=== PATIENT | female | born 1965 | race American Indian/Alaskan Native ===

== ENCOUNTER 2018-05-12 11:46 | Emergency (ER) | payer MEDICAID ==
--- NOTE | 2018-05-12 12:06 | EDM.PDOC ---
ED HPI GENERAL MEDICAL PROBLEM - General Chief Complaint: ENT Problem Stated Complaint: SORE THROAT Time Seen by Provider: 05/12/18 12:06 Source of Information: Reports: Patient, RN, RN Notes Reviewed - History of Present Illness INITIAL COMMENTS - FREE TEXT/NARRATIVE: Bailey Freed is a 53 -year-old female who presents to our ED with complaints of ongoing cold for 3 weeks which is getting worse. She reports hoarseness, sore throat, thick yellow-green mucus and bloody nasal mucous, cough , and burning in the chest which is worse with cough. She denies any shortness of breath or other chest pain. She has been taking Motrin and ibuprofen, emergen-C , and Lupe-[place]. She's not had a flu shot. She reports occasional popping from her ears but no ear pain. She reports okay oral intake and has been drinking plenty of fluids. She denies any dizziness. She has a history of spinal stenosis and hypertension. She is allergic to penicillin. She does not report specific PCP however she does state that she sees were present available at [facility]. Denies any sick contacts however she is concerned as he daughter is and she has young children around. Throat Pain Score (Numeric/FACES): 5 - Related Data Allergies Allergy/AdvReac Type Severity Reaction Status Date / Time Penicillins Allergy Hives Verified 05/12/18 11:54 Home Meds: Home Meds Benzonatate [Tessalon Perle] 200 mg PO Q8H PRN #15 capsule 05/12/18 [Rx] Carisoprodol [Soma] 0 mg PO TID 05/12/18 [History] [place] Aspartate [Lithate] 0 mg PO DAILY 05/12/18 [History] Past Medical History Cardiovascular History: Reports: Hypertension Musculoskeletal History: Reports: Back Pain, Chronic, Other (See Below) Other Musculoskeletal History: spinal stenosis Psychiatric History: Reports: Anxiety, Bipolar, PTSD Social & Family History - Tobacco Use Smoking Status *Q: Current Every Day Smoker Years of Tobacco use: 20 Packs/Tins Daily: 0.4 - Caffeine Use Caffeine Use: Reports: Coffee, Energy Drinks, Soda, Tea - Recreational Drug Use Recreational Drug Use: No ED ROS ENT - Review of Systems Review Of Systems: See Below Constitutional: Reports: No Symptoms, Malaise, Decreased Appetite (reports she has been "finicky" ). Denies: Fever, Chills, Weakness, Fatigue HEENT: Reports: Rhinitis, Throat Pain. Denies: Dental Pain, Ear Discharge, Ear Pain, Eye Discharge, Eye Pain, Hearing Loss, Nosebleed, Nose Pain, Sinus Problem , Throat Swelling, Vision Change Respiratory: Reports: Wheezing, Cough, Sputum. Denies: Shortness of Breath, Pleuritic Chest Pain, Hemoptysis Cardiovascular: Reports: No Symptoms. Denies: Chest Pain, Dyspnea on Exertion, Lightheadedness, Orthopnea, Palpitations, Syncope Endocrine: Reports: No Symptoms GI/Abdominal: Reports: Nausea. Denies: Abdominal Pain, Bloody Stool, Constipation, Diarrhea, Distension, Hematemesis, Hematochezia, Melena, Vomiting : Reports: No Symptoms Musculoskeletal: Reports: No Symptoms Skin: Reports: No Symptoms ED EXAM, ENT - Physical Exam Exam: See Below Exam Limited By: No Limitations General Appearance: Alert, WD/WN, No Apparent Distress Eye Exam: Bilateral Eye: EOMI, Normal Inspection, PERRL Ears: Normal External Exam, Hearing Grossly Normal, Normal TMs, Canal Blood ( very small area of what appears to be old dried blood on anterior aspect of right canal ) Nose: Normal Inspection, Normal Mucousa, No Blood Mouth/Throat: Normal Inspection, Normal Gums, Normal Lips, Normal Oropharynx, Normal Teeth Head: Atraumatic, Normocephalic Neck: Normal Inspection, Supple, Non-Tender, Full Range of Motion Respiratory/Chest: No Respiratory Distress, Lungs Clear, Normal Breath Sounds, No Accessory Muscle Use, Chest Non-Tender Cardiovascular: Normal Peripheral Pulses, Regular Rate, Rhythm, No Edema, No Gallop, No JVD, No Murmur, No Rub GI/Abdominal: Normal Bowel Sounds, Soft, Non-Tender, No Organomegaly, No Distention, No Abnormal Bruit, No Mass Lymphatic: No Adenopathy Course - Vital Signs Last Recorded V/S: Last Vital Signs Temp 97.0 F 05/12/18 11:59 Pulse 88 05/12/18 11:59 Resp 20 05/12/18 11:59 BP 105/77 05/12/18 11:59 Pulse Ox 96 05/12/18 11:59 - Orders/Labs/Meds Orders: Active Orders 24 hr Category Date Time Status CXR [Chest 2V] [CR] Routine Exams 05/12/18 12:24 Taken CULTURE STREP A CONFIRMATION [RM] Stat Lab 05/12/18 12:55 Results STREP SCRN A RAPID W CULT CONF [] Stat Lab 05/12/18 12:55 Results Labs: Laboratory Tests 05/12/18 05/12/18 Range/Units 12:29 12:29 WBC 11.71 H (3.98-10.04) K/mm3 RBC 4.86 (3.98-5.22) M/mm3 Hgb 14.2 (11.2-15.7) gm/L Hct 45.0 H (34.1-44.9) % MCV 92.6 (79.4-94.8) fl MCH 29.2 (25.6-32.2) pg MCHC 31.6 L (32.2-35.5) g/dl RDW Std Deviation 43.9 (36.4-46.3) fL Plt Count 341 (182-369) K/mm3 MPV 8.8 L (9.4-12.3) fl Neut % (Auto) 58.2 (34.0-71.1) % Lymph % (Auto) 29.3 (19.3-51.7) % [place] % (Auto) 8.6 (4.7-12.5) % Eos % (Auto) 3.1 (0.7-5.8) Baso % (Auto) 0.6 (0.1-1.2) % Neut # (Auto) 6.82 H (1.56-6.13) K/mm3 Lymph # (Auto) 3.43 (1.18-3.74) K/mm3 [place] # (Auto) 1.01 H (0.24-0.36) K/mm3 Eos # (Auto) 0.36 (0.04-0.36) K/mm3 Baso # (Auto) 0.07 (0.01-0.08) K/mm3 Sodium 137 (136-145) mEq/L Potassium 4.0 (3.5-5.1) mEq/L Chloride 102 (98-107) mEq/L Carbon Dioxide 27 (21-32) mEq/L Anion Gap 12.0 (5-15) BUN 23 H (7-18) mg/dL Creatinine 1.1 H (0.55-1.02) mg/dL Est Cr Clr Drug Dosing 53.83 mL/min Estimated GFR (MDRD) 52 (>60) mL/min BUN/Creatinine Ratio 20.9 H (14-18) Glucose 111 H (74-106) mg/dL Calcium 9.3 (8.5-10.1) mg/dL Mycoplasma pneumon IgM Negative (NEGATIVE) - Re-Assessments/Exams Free Text/Narrative Re-Assessment/Exam: Initial labs will include CBC, CMP, mycoplasma pneumonia, influenza, rapid strep screen. We'll also order 2 view chest x-ray as she is reported wheezing and productive cough. 05/12/18 12:27 Chest x-ray reviewed by myself and Dr. Maxwell. Nothing acute is noted however patient does have what appears to be a nodule in the right lung base. Because the patient is a smoker we will recommend follow-up with primary care for provider regarding this. She may benefit from a CT scan in the future. Influenza and rapid strep both returned negative. Strep culture will be pending. CBC is slightly elevated at 11.71. Neutrophils are normal at 58.2. Creatinine is slightly elevated at 1.1. BUN is 23. EGFR is 52. Glucose is 111. Mycoplasma pneumonia is negative. 05/12/18 13:34 Departure - Departure Time of Disposition: 14:15 Disposition: Home, Self-Care 01 Condition: Good Clinical Impression: Viral upper respiratory illness - Discharge Information *PRESCRIPTION DRUG MONITORING PROGRAM REVIEWED*: No *COPY OF PRESCRIPTION DRUG MONITORING REPORT IN PATIENT TILA: No Prescriptions: Benzonatate [Tessalon Perle] 200 mg PO Q8H PRN #15 capsule PRN Reason: Cough Instructions: Viral Illness, Adult Referrals: PCP,None [Primary Care Provider] - Forms: ED Department Discharge Additional Instructions: You were seen in the ED today due to cough and sore throat. Your labs looked good and your influenza and strep throat screen were negative. Your chest X-ray showed no pneumonia. This is good news. We did note a small abnormality in the right lower lobe of your lung. This is often just a spot where 2 vessels cross however it could be something more. Recommend re-check this in 6 months with your primary care provider. You should stop smoking. You likely have a viral illness. An antibiotic will not help with this. Recommend rest and keeping hydrated. Drink water, power-aid, and Gatorade. Recommend [id number] Robitussin for cough. Will also sent a prescription for cough medication to [facility]. Take these as prescribed and do not chew them. Should symptoms worsen see a primary care provider, walk-in clinic, or if necessary return to the ED. - My Orders Last 24 Hours: My Active Orders 05/12/18 12:24 CXR [Chest 2V] [CR] Routine 05/12/18 12:55 CULTURE STREP A CONFIRMATION [RM] Stat STREP SCRN A RAPID W CULT CONF [RM] Stat - Assessment/Plan Last 24 Hours: My Active Orders 05/12/18 12:24 CXR [Chest 2V] [CR] Routine 05/12/18 12:55 CULTURE STREP A CONFIRMATION [RM] Stat STREP SCRN A RAPID W CULT CONF [RM] Stat
--- NOTE | 2018-05-13 07:58 | CR ---
Chest: Two views of the chest were obtained. Comparison: No previous chest x-ray. Heart size and mediastinum are normal. Lungs are clear. Scattered degenerative change is seen throughout the spine. Impression: 1. Nothing acute is seen on two-view chest x-ray. Diagnostic code #2
== END 2018-05-12 14:34 | disposition home or self-care (01) ==
LOC: JD.ED 11:46
DX: J06.9 Acute upper respiratory infection, unspecified (principal); I10 Essential (primary) hypertension; F17.210 Nicotine dependence, cigarettes, uncomplicated; Z88.0 Allergy status to penicillin; Z79.899 Other long term (current) drug therapy
CPT/HCPCS: 36415; 71046; 71046-26; 80048; 85025; 86738; 87081; 87430; 87804; 99282; 99283

== ENCOUNTER 2018-06-18 16:54 | Emergency (ER) | payer MEDICAID ==
[2018-06-18] MEDS ORDERED: Clindamycin HCl 150 MG Cap PO ONE ×2 (17:27→17:28)
[2018-06-18] MEDS ORDERED: Ketorolac 30 MG/ML SDV IM ONE (17:28)
--- NOTE | 2018-06-18 17:38 | EDM.PDOC ---
ED HPI GENERAL MEDICAL PROBLEM - General Chief Complaint: ENT Problem Stated Complaint: POSS INFECTION IN MOUTH Time Seen by Provider: 06/18/18 17:12 Source of Information: Reports: Patient, RN Notes Reviewed History Limitations: Reports: No Limitations - History of Present Illness INITIAL COMMENTS - FREE TEXT/NARRATIVE: Patient is a 53-year-old female who presents to the ED today for the evaluation of a possible dental abscess. The patient states that she had some pain in the upper right portion of her jaw yesterday, and this morning she noticed a bubble that had formed over the spot where she had pain. She also noticed some foul tasting/smelling discharge. She states that she normally takes ibuprofen 800 mg daily for other issues, and this is not cutting the pain at this time. She notes that she does have poor teeth and there are multiple fillings that are crumbling out of her mouth. She denies any fever/chills but does have some mild swelling noted to the right side of her face. She is not having any difficulty swallowing at this time nor is she having headache. She would rate her pain at a 6 out of 10 today. Right Upper Tooth/Teeth Pain Score (Numeric/FACES): 6 - Related Data Allergies Allergy/AdvReac Type Severity Reaction Status Date / Time Penicillins Allergy Hives Verified 06/18/18 17:12 Home Meds: Home Meds Benzonatate [Tessalon Perle] 200 mg PO Q8H PRN #15 capsule 05/12/18 [Rx] Carisoprodol [Soma] 0 mg PO TID 05/12/18 [History] [place] Aspartate [Lithate] 0 mg PO DAILY 05/12/18 [History] Clindamycin HCl 300 mg PO QID #40 capsule 06/18/18 [Rx] Past Medical History Cardiovascular History: Reports: Hypertension Musculoskeletal History: Reports: Back Pain, Chronic, Other (See Below) Other Musculoskeletal History: spinal stenosis Psychiatric History: Reports: Anxiety, Bipolar, PTSD Social & Family History - Tobacco Use Smoking Status *Q: Never Smoker - Caffeine Use Caffeine Use: Reports: None - Recreational Drug Use Recreational Drug Use: No ED ROS ENT - Review of Systems Review Of Systems: See Below Constitutional: Reports: No Symptoms HEENT: Reports: Dental Pain Respiratory: Reports: No Symptoms Cardiovascular: Reports: No Symptoms Endocrine: Reports: No Symptoms GI/Abdominal: Reports: No Symptoms : Reports: No Symptoms Musculoskeletal: Reports: No Symptoms Skin: Reports: No Symptoms Neurological: Reports: No Symptoms Psychiatric: Reports: No Symptoms Hematologic/Lymphatic: Reports: No Symptoms Immunologic: Reports: No Symptoms ED EXAM, ENT - Physical Exam Exam: See Below Exam Limited By: No Limitations General Appearance: Alert, WD/WN, No Apparent Distress Eye Exam: Bilateral Eye: Normal Inspection Ears: Normal External Exam Nose: Normal Inspection Mouth/Throat: Normal Inspection, Normal Lips, Normal Oropharynx, Dental Tenderness (Upper right jaw near incisors, most dentition in poor repair.). No : Pharyngeal Erythema Head: Atraumatic, Normocephalic, Facial Swelling (Noted to the right cheek), Facial Tenderness (Noted to the right cheek over the maxillary sinus), Sinus Tenderness (Right maxillary sinus) Neck: Normal Inspection, Supple, Non-Tender, Full Range of Motion. No: Lymphadenopathy (L), Lymphadenopathy (R) Respiratory/Chest: No Respiratory Distress, Lungs Clear, Normal Breath Sounds, No Accessory Muscle Use, Chest Non-Tender Cardiovascular: Normal Peripheral Pulses, Regular Rate, Rhythm, No Murmur Extremities: Normal Inspection, Normal Capillary Refill Neurological: Alert, Oriented, Normal Cognition, No Motor/Sensory Deficits Psychiatric: Normal Affect, Normal Mood Skin: Warm, Dry, Intact, Normal Color, No Rash Course - Vital Signs Last Recorded V/S: Last Vital Signs Temp 97.9 F 06/18/18 17:10 Pulse 78 06/18/18 17:10 Resp 16 06/18/18 17:10 BP 162/93 H 06/18/18 17:10 Pulse Ox 97 06/18/18 17:10 - Orders/Labs/Meds Meds: Medications Discontinued Medications Generic Name Dose Route Start Last Admin Trade Name Lionq PRN Reason Stop Dose Admin Clindamycin HCl 450 mg 06/18/18 17:27 Cleocin PO 06/18/18 17:28 ONETIME ONE Clindamycin HCl 150 mg 06/18/18 17:28 Cleocin PO 06/18/18 17:29 ONETIME ONE Ketorolac Tromethamine 30 mg 06/18/18 17:28 Toradol IM 06/18/18 17:29 ONETIME ONE - Re-Assessments/Exams Free Text/Narrative Re-Assessment/Exam: 06/18/18 17:37 Patient presents to the ED for the evaluation of dental pain. I have ordered 30 mg IM Toradol and a 600 mg Cleocin loading dose in the ED and have provided the patient with a prescription for 300 mg 4 times a day for 10 days. Departure - Departure Time of Disposition: 17:38 Disposition: Home, Self-Care 01 Condition: Fair Clinical Impression: Dental abscess - Discharge Information *PRESCRIPTION DRUG MONITORING PROGRAM REVIEWED*: No *COPY OF PRESCRIPTION DRUG MONITORING REPORT IN PATIENT TILA: No Prescriptions: Clindamycin HCl 300 mg PO QID #40 capsule Instructions: Dental Abscess, [id number] Referrals: Phillip Davila MD [Primary Care Provider] - Additional Instructions: You have been evaluated in the ED for your dental pain. You have been provided with a script for Clindamycin. This was electronically sent to [facility] pharmacy located near [facility]. Please take this medication as directed. (1 tab 4 times daily for 10 days or until gone). Aleve provides good pain relief for dental pain. Please take 1-2 tabs twice daily as needed for pain. You may use hot pack/ ice packs to the affected area as tolerated in 15-20 minute intervals. You will ultimately need to find a dentist to provide definitive management of your dental pain. A list of dentists have been provided to you, you will need to find dental care through one of these providers. Please return to the ED if your symptoms change or worsen.
== END 2018-06-18 17:53 | disposition home or self-care (01) ==
LOC: JD.ED 16:54
DX: K04.7 Periapical abscess without sinus (principal); I10 Essential (primary) hypertension; Z79.899 Other long term (current) drug therapy; Z88.0 Allergy status to penicillin
CPT/HCPCS: 96372; 99282; A9270; J1885; 99283

== ENCOUNTER 2019-12-22 11:14 | Day surgery (SDC) | payer MEDICAID ==
[~2019-12-22 11:14] MED LIST: Lactated Ringers 1,000 ML IV SCH; Lidocaine 1%/Sod Bicarbonate in NS 8.4% 1 ML Syringe IDERM PRN; Sodium Chloride 0.9% 10 ML Syringe FLUSH PRN; TRIAMCINOLONE ACETONIDE 40 MG/ML ONE
[2019-12-22] MEDS ORDERED: Triamcinolone Acetonide 40 MG/ML 1 ML SDV ONE (11:57)
[2019-12-22] MEDS ORDERED: Lidocaine 1% 50 ML MDV ONE (11:58)
[2019-12-22] MEDS ORDERED: Bupivacaine 0.25% 10 ML SDV ONE (11:58)
--- NOTE | 2019-12-22 12:19 | PCM.PREANE ---
Preanesthetic Assessment - Procedure Proposed Procedure: right carpal tunnel release with left carpal tunnel injection, right thumbe index x 1 - Anesthesia/Transfusion/Family Hx Anesthesia History: Prior Anesthesia Without Reaction Family History of Anesthesia Reaction: No Transfusion History: No Prior Transfusion(s) Intubation History: Unknown - Review of Systems General: No Symptoms Pulmonary: No Symptoms Cardiovascular: No Symptoms Gastrointestinal: No Symptoms Neurological: No Symptoms Other: Reports: Depression, Anxiety - Physical Assessment NPO Status Date: 12/21/19 NPO Status Time: 10:30 Height: 1.65 m Weight: 106.9 kg ASA Class: 3 Mental Status: Alert & Oriented x3 Airway Class: Mallampati = 1 Dentition: Reports: Normal Dentition Thyro-Mental Finger Breadths: 3 Mouth Opening Finger Breadths: 5 ROM/Head Extension: Limited/Partial Lungs: Clear to Auscultation, Normal Respiratory Effort Cardiovascular: Regular Rate, Regular Rhythm - Lab Values: Laboratory Last Values SARS-CoV-2 (PCR) Not detected (NOT DETECT) 12/18/19 12:30 MRSA (PCR) Negative 12/10/19 14:38 - Allergies Allergies/Adverse Reactions: Allergies Allergy/AdvReac Type Severity Reaction Status Date / Time Penicillins Allergy Hives Verified 06/18/18 17:12 - Blood Blood Available: No - Acknowledgements Anesthesia Type Planned: MAC Pt an Appropriate Candidate for the Planned Anesthesia: Yes Alternatives and Risks of Anesthesia Discussed w Pt/Guardian: Yes Pt/Guardian Understands and Agrees with Anesthesia Plan: Yes PreAnesthesia Questionnaire Cardiovascular History: Reports: Hypertension Musculoskeletal History: Reports: Back Pain, Chronic, Other (See Below) Other Musculoskeletal History: spinal stenosis Psychiatric History: Reports: Anxiety, Bipolar, PTSD - HOME MEDS Home Medications: Home Meds Benzonatate [Tessalon Perle] 200 mg PO Q8H PRN #15 capsule 05/12/18 [Rx] [place] Aspartate [Lithate] 0 mg PO DAILY 05/12/18 [History] carisoprodoL [Soma] 0 mg PO TID 05/12/18 [History] Clindamycin HCl 300 mg PO QID #40 capsule 06/18/18 [Rx] Acetaminophen/HYDROcodone [[place] 325-5 MG] 1 - 2 tab PO Q6H PRN #10 tablet 12/18/19 [Rx] - CURRENT (IN HOUSE) MEDS Current Meds: Current Medications Discontinued Medications Bupivacaine HCl (Sensorcaine-Mpf 0.25%) Confirm Administered Dose 20 ml .ROUTE .STK-MED ONE Stop: 12/22/19 11:59 Lactated Ringer's (Ringers, Lactated) 1,000 mls @ 125 mls/hr IV ASDIRECTED ALEX Stop: 11/06/19 23:00 Lactated Ringer's (Ringers, Lactated) 1,000 mls @ 125 mls/hr IV ASDIRECTED [facility] Stop: 12/18/19 23:00 Lidocaine HCl (Xylocaine 1%) Confirm Administered Dose 50 ml .ROUTE .STK-MED ONE Stop: 12/22/19 11:59 Lidocaine/Sodium Bicarbonate (Buffered Lidocaine 1% In Ns 8.4%) 0.25 ml IDERM ONETIME PRN PRN Reason: Prior to IV Start Stop: 11/06/19 18:00 Lidocaine/Sodium Bicarbonate (Buffered Lidocaine 1% In Ns 8.4%) 0.25 ml IDERM ONETIME PRN PRN Reason: Prior to IV Start Stop: 12/18/19 18:00 Sodium Chloride (Saline Flush) 10 ml FLUSH ASDIRECTED PRN PRN Reason: Keep Vein Open Stop: 11/06/19 18:00 Sodium Chloride (Saline Flush) 10 ml FLUSH ASDIRECTED PRN PRN Reason: Keep Vein Open Stop: 12/18/19 18:00 Triamcinolone Acetonide (Kenalog-40) Confirm Administered Dose 80 mg .ROUTE .STK-MED ONE Stop: 12/22/19 11:58
[2019-12-22] MEDS ORDERED: Propofol 200 MG/20 ML SDV ONE ×2 (12:26→12:29)
[2019-12-22] MEDS ORDERED: Midazolam 1 MG/ML 2 ML SDV ONE (12:26)
[2019-12-22] MEDS ORDERED: fentaNYL 100 MCG/2 ML SDV ONE (12:26)
[2019-12-22] MEDS ORDERED: Lidocaine 1% 4 ML ONE (12:28)
[2019-12-22] MEDS ORDERED: ceFAZolin 1 GM Vial ONE (13:11)
[2019-12-22] MEDS: Bupivacaine 0.25% 10 ML SDV ONE ×3 (13:31→13:41)
[2019-12-22] MEDS: Triamcinolone Acetonide 40 MG/ML 1 ML SDV ONE ×2 (13:40→13:41)
--- NOTE | 2019-12-22 14:00 | PCM48HPAN ---
Post Anesthesia Note - EVALUATION WITHIN 48HRS OF ANESTHETIC Vital Signs in Normal Range: Yes Patient Participated in Evaluation: Yes Respiratory Function Stable: Yes Airway Patent: Yes Cardiovascular Function Stable: Yes Hydration Status Stable: Yes Pain Control Satisfactory: Yes Nausea and Vomiting Control Satisfactory: Yes Mental Status Recovered: Yes
[2019-12-22] MEDS ORDERED: fentaNYL 100 MCG/2 ML SDV IVPUSH PRN (14:02)
[2019-12-22] MEDS ORDERED: Ondansetron 4 MG/2 ML SDV IVPUSH PRN (14:02)
[2019-12-22] MEDS ORDERED: TRIAMCINOLONE ACETONIDE 40 MG/ML ONE (14:12)
[2019-12-22] MEDS ORDERED: Sodium Chloride 0.9% 10 ML Syringe FLUSH PRN (14:34)
--- NOTE | 2019-12-22 17:24 | PCM.OPNOTE ---
- General Post-Op/Procedure Note Date of Surgery/Procedure: 12/22/19 Operative Procedure(s): right carpal tunnel release with left carpal tunnel injection and right thumb, index and middle finger trigger finger injections Pre Op Diagnosis: bilateral median nerve compression neuropathy and right thumb, index, and middle finger stenosingn tenosynovitis Post-Op Diagnosis: Same Anesthesia Technique: Local, MAC Primary Surgeon: Dre Cruz Anesthesia Provider: Elizabeth Cage Material Yard Clerk: Brittany MontanoL in mLs: 5 Complications: None Condition: Good Free Text/Narrative:: Intake & Output 12/22/19 12/22/19 12/22/19 06:59 14:59 22:59 Intake Total 560 Balance 560
--- NOTE | 2019-12-29 09:20 | OR ---
DATE OF OPERATION: 12/22/2019 SURGEON: Dre Cruz MD OPERATION PERFORMED: Right carpal tunnel release with left carpal tunnel injection and right thumb index and middle finger trigger finger injections. PREOPERATIVE DIAGNOSIS: Bilateral median nerve compression neuropathy and right thumb index and middle finger stenosing tenosynovitis. POSTOPERATIVE DIAGNOSIS: Bilateral median nerve compression neuropathy and right thumb index and middle finger stenosing tenosynovitis. ANESTHESIA: Local MAC. ANESTHESIA PROVIDER: Elizabeth Cage. PARTY HOST/HOSTESS: Brittany Montano PA-C. ESTIMATED BLOOD LOSS: Less than 5 mL. COMPLICATIONS: None. CONDITION: Stable. DESCRIPTION OF PROCEDURE: The patient was identified in the preop holding area. Proper site was marked and identified by the surgeon. The patient was taken back to the operating theater where after adequate anesthesia, the patient's right upper extremity was sterilely prepped and draped in the usual sterile fashion. OR time-out was performed. The patient did not receive antibiotics and it is not indicated for soft tissue hand procedure. At this time, the right upper extremity was exsanguinated and an [place] was used as a tourniquet on the forearm. At this time, using 1% lidocaine without epinephrine and 0.25% Marcaine without epinephrine, the palmar cutaneous branch of the median nerve was anesthetized and then the incisional site was anesthetized using Hernandez cardinal line and ulnar border of the fourth digit as reference. Once this had set up, an incision was made. Blunt dissection was taken down to the palmar cutaneous fascia. Palmar cutaneous fascia was incised with a [place] blade. At this time, the transverse carpal ligament was identified. A small rent was made in the transverse carpal ligament with a [place] blade under direct visualization. Resection of the transverse carpal ligament was done distally using tenotomy scissors making sure to stop short of the palmar arch. At this time, attention was turned proximally after it was found to be adequately released. Using the tenotomy scissors keeping the tips ulnar to protect the palmar cutaneous branch of the median nerve, the superficial forearm fascia as well as the transverse carpal ligament were resected proximally. It was found to be adequate release both proximally and distally. At this time, adequate saline was irrigated through the wound. 4-0 nylon sutures were used closure of the skin. The patient was placed in a sterile soft dressing and sent to PACU in stable condition. After this was completed under sterile technique, 1 mL of 40 mg Kenalog and 1 mL of 0.25% Marcaine were injected to the right thumb, index, and middle finger A1 adonis region. The patient then had a sterile soft dressing applied to that side. After this was completed under sterile technique, 1 mL of 40 mg Kenalog and 2 mL of 0.25% Marcaine were injected to the left carpal tunnel. The patient tolerated all procedures well. CAMMY /[id number]
== END 2019-12-22 15:10 | disposition home or self-care (01) ==
LOC: JD.SDS 11:14
PROVIDERS: ATTEND Orthopaedic Surgery
DX: G56.13 Other lesions of median nerve, bilateral upper limbs (principal); M65.841 Other synovitis and tenosynovitis, right hand; I10 Essential (primary) hypertension; L73.2 Hidradenitis suppurativa; M48.02 Spinal stenosis, cervical region; F41.8 Other specified anxiety disorders; F17.211 Nicotine dependence, cigarettes, in remission; G56.03 Carpal tunnel syndrome, bilateral upper limbs; K21.9 Gastro-esophageal reflux disease without esophagitis; Z01.812 Encounter for preprocedural laboratory examination; Z20.828 Contact with and (suspected) exposure to other viral communicable diseases; Z79.899 Other long term (current) drug therapy; Z88.0 Allergy status to penicillin; Z98.1 Arthrodesis status
CPT/HCPCS: 20526; 20553; 64721; 87635; 87641; J0690; J2001; J2250; J2704; J3010; J3300; J3301; J3490; 01810; U0002

== ENCOUNTER 2020-01-06 12:44 | Emergency (ER) | payer MEDICAID ==
--- NOTE | 2020-01-06 14:01 | EDM.PDOC ---
ED HPI GENERAL MEDICAL PROBLEM - General Chief Complaint: Drug or Alcohol Abuse Stated Complaint: [facility] Time Seen by Provider: 01/06/20 13:15 - History of Present Illness INITIAL COMMENTS - FREE TEXT/NARRATIVE: 54-year-old female presents the emergency room after having some sort of an event at home. She was brought in by EMS. Apparently the patient was found down with her lips turning blue. She was found in the bathroom her time down was unknown. The patient is having a hard time concentrating and organizing her speech however she gives a history of last being normal around 730 or 8:00 this morning. The patient remembers going to the bathroom but does not remember anything after that. The patient has not had episodes like this in the past. The patient's daughter stated that she is concerned that perhaps her mom is taking some street drugs or took too many of her postoperative medications. Patient recently had carpal tunnel surgery bilaterally here in town apparently she ran out of those medications and took some medication she had left over from an ovary surgery she had done in [place] a couple of months ago. Apparently the patient's been having some problem with some vaginal spotting intermittently and today this was heavier than he has been experiencing in the recent past. According to the daughter the her mom was last known normal around 7 AM this morning. She was out taking care of business and when she came back found her mom in the state. The patient had a carpal tunnel surgery at the end of last month she received 10 [place] at that time and has not had any refills. 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 - Related Data Allergies Allergy/AdvReac Type Severity Reaction Status Date / Time Penicillins Allergy Hives Verified 01/06/20 12:56 Home Meds: Home Meds Losartan [Cozaar] 100 mg PO DAILY 01/06/20 [History] Losartan/Hydrochlorothiazide [Losartan-HCTZ 100-25 MG] 1 tab PO DAILY 01/06/20 [History] Pantoprazole Sodium [Protonix] 40 mg PO DAILY 01/06/20 [History] Topiramate 50 mg PO DAILY 01/06/20 [History] Venlafaxine [Effexor XR] 150 mg PO DAILY 01/06/20 [History] hydrOXYzine pamoate [Hydroxyzine Pamoate] 100 mg PO BEDTIME 01/06/20 [History] Past Medical History Cardiovascular History: Reports: Hypertension Gastrointestinal History: Reports: GERD RIGGING UP MAN History: Reports: Musculoskeletal History: Reports: Back Pain, Chronic, Other (See Below) Other Musculoskeletal History: spinal stenosis Psychiatric History: Reports: Anxiety, Bipolar, PTSD Endocrine/Metabolic History: Reports: Obesity/BMI 30+ - Past Surgical History Female Surgical History: Reports: Oophorectomy, Salpingo-Oophorectomy Musculoskeletal Surgical History: Reports: Carpal Tunnel Social & Family History - Family History Family Medical History: Noncontributory - Tobacco Use Tobacco Use Status *Q: Current Every Day Tobacco User Years of Tobacco use: 35 Packs/Tins Daily: 1 - Caffeine Use Caffeine Use: Reports: Coffee, Soda - Recreational Drug Use Recreational Drug Use: Yes Recreational Drug Type: Reports: Other (see below) Other Recreational Drug Type: "crack for 20 years stopped 8-9 years ago". pt states she takes more than prescribed sometimes Recreational Drug Use Frequency: Daily ED ROS GENERAL - Review of Systems Review Of Systems: See Below Constitutional: Denies: Fever, Chills HEENT: Reports: No Symptoms Respiratory: Reports: No Symptoms. Denies: Hemoptysis Cardiovascular: Reports: Syncope (Syncope is possible). Denies: Dyspnea on Exertion, Palpitations GI/Abdominal: Reports: No Symptoms : Reports: Other (Vaginal spotting no burning or frequency however) Musculoskeletal: Reports: Other (She has chronic left leg weakness secondary to spinal stenosis) Skin: Reports: No Symptoms Neurological: Reports: Weakness Psychiatric: Reports: No Symptoms ED EXAM, GENERAL - Physical Exam Exam: See Below Exam Limited By: No Limitations General Appearance: Alert, No Apparent Distress, Obese, Other (Planes of evident dry mouth. With observation the patient is having a hard time formulating her speech but no other apparent weaknesses.) Eye Exam: Bilateral Eye: EOMI, Normal Inspection Ears: Normal External Exam, Normal Canal, Hearing Grossly Normal, Normal TMs Throat/Mouth: Normal Inspection, Normal Lips, Normal Gums, Normal Oropharynx, Normal Voice, No Airway Compromise, Other (Dentures on the upper) Head: Atraumatic, Normocephalic. No: Facial Swelling, Facial Tenderness, Sinus Tenderness Neck: Normal Inspection, Supple. No: Lymphadenopathy (L), Lymphadenopathy (R) Respiratory/Chest: No Respiratory Distress, Lungs Clear, Normal Breath Sounds Cardiovascular: No Edema, No Murmur, Tachycardia (Around 110 during my exam). No: Irregularly Irregular GI/Abdominal: Normal Bowel Sounds, Soft, Non-Tender, Other (Obese) Extremities: Other (She has and noticeable weakness in her left lower leg this apparently is chronic. Upper extremity exam is entirely within normal limits) Neurological: Other (She has difficulty formulating her speech remaining exam is otherwise unremarkable at this time) Skin Exam: Stud(s) Course - Vital Signs Last Recorded V/S: Last Vital Signs Temp 35.6 C L 01/06/20 12:48 Pulse 124 H 01/06/20 12:48 Resp 12 01/06/20 12:48 BP 157/104 H 01/06/20 12:48 Pulse Ox 98 01/06/20 12:48 - Orders/Labs/Meds Orders: Active Orders 24 hr Category Date Time Status EKG Documentation Completion [RC] STAT Care 01/06/20 13:56 Active Chest 1V Frontal [CR] Stat Exams 01/06/20 13:57 Taken Head wo Cont [CT] Stat Exams 01/06/20 13:59 Taken CORONAVIRUS COVID-19 FERCHO [MOLEC] Stat Lab 01/06/20 19:45 Received CULTURE BLOOD [BC] Stat Lab 01/06/20 19:05 Received CULTURE BLOOD [BC] Stat Lab 01/06/20 19:19 Received MYOGLOBIN [REF] Stat Lab 01/06/20 14:36 Received MYOGLOBIN, URINE Stat Lab 01/06/20 16:15 Received Heparin Sodium/D5W [Heparin 25,000 Units in D5W 500 ML] Med 01/06/20 19:00 Active 25,000 units in 500 ml IV TITRATE Lactated Ringers [Ringers, Lactated] 1,000 ml Med 01/06/20 14:15 Active IV ASDIRECTED Blood Culture x2 Reflex Set [OM.PC] Stat Oth 01/06/20 18:44 Ordered Medication Orders Lactated Ringer's (Ringers, Lactated) 1,000 mls @ 125 mls/hr IV ASDIRECTED ALEX Last Admin: 01/06/20 15:15 Dose: 125 mls/hr Documented by: DENICE Heparin Sodium/Dextrose (Heparin 25,000 Units In D5w 500 Ml) 25,000 units in 500 mls @ 20 mls/hr IV TITRATE ALEX; Protocol Last Admin: 01/06/20 19:06 Dose: 1,000 units/hr, 20 mls/hr Documented by: GREER Cosigned by: DENICE Labs: Laboratory Tests 01/06/20 01/06/20 01/06/20 Range/Units 14:36 14:36 14:36 WBC 36.45 H (3.98-10.04) K/mm3 RBC 4.83 (3.98-5.22) M/mm3 Hgb 14.0 (11.2-15.7) gm/dl Hct 45.0 H (34.1-44.9) % MCV 93.2 (79.4-94.8) fl MCH 29.0 (25.6-32.2) pg MCHC 31.1 L (32.2-35.5) g/dl RDW Std Deviation 52.4 H (36.4-46.3) fL Plt Count 353 (182-369) K/mm3 MPV 9.0 L (9.4-12.3) fl Neut % (Auto) 89.0 H (34.0-71.1) % Lymph % (Auto) 4.2 L (19.3-51.7) % [place] % (Auto) 6.2 (4.7-12.5) % Eos % (Auto) 0 L (0.7-5.8) Baso % (Auto) 0.1 (0.1-1.2) % Neut # (Auto) 32.43 H (1.56-6.13) K/mm3 Lymph # (Auto) 1.52 (1.18-3.74) K/mm3 [place] # (Auto) 2.26 H (0.24-0.36) K/mm3 Eos # (Auto) 0.01 L (0.04-0.36) K/mm3 Baso # (Auto) 0.04 (0.01-0.08) K/mm3 Manual Slide Review Abnormal smear PT (9.7-11.7) SECONDS INR APTT (22-31) SECONDS Sodium 140 (136-145) mEq/L Potassium 4.1 (3.5-5.1) mEq/L Chloride 104 (98-107) mEq/L Carbon Dioxide 23 (21-32) mEq/L Anion Gap 17.1 H (5-15) BUN 24 H (7-18) mg/dL Creatinine 1.1 H (0.55-1.02) mg/dL Est Cr Clr Drug Dosing 53.22 mL/min Estimated GFR (MDRD) 52 (>60) mL/min BUN/Creatinine Ratio 21.8 H (14-18) Glucose 78 (74-106) mg/dL Calcium 8.9 (8.5-10.1) mg/dL Total Bilirubin 0.3 (0.2-1.0) mg/dL AST 41 H (15-37) U/L ALT 61 H (14-59) U/L Alkaline Phosphatase 107 (46-116) U/L Creatine Kinase (26-192) U/L Troponin I 0.155 H* (0.00-0.056) ng/mL Total Protein 8.6 H (6.4-8.2) g/dl Albumin 3.5 (3.4-5.0) g/dl Globulin 5.1 gm/dL Albumin/Globulin Ratio 0.7 L (1-2) Urine Color (Yellow) Urine Appearance (Clear) Urine pH (5.0-8.0) Ur Specific [place] (1.005-1.030) Urine Protein (Negative) Urine Glucose (UA) (Negative) Urine Ketones (Negative) Urine Occult Blood (Negative) Urine Nitrite (Negative) Urine Bilirubin (Negative) Urine Urobilinogen (0.2-1.0) Ur Leukocyte Esterase (Negative) Urine RBC (0-5) /hpf Urine WBC (0-5) /hpf Ur Squamous Epith Cells (0-5) /hpf Amorphous Sediment (NOT SEEN) /hpf Urine Bacteria (FEW) /hpf Urine Mucus (FEW) /hpf Salicylates 2.1 L (2.8-20) mg/dL Urine Opiates Screen (KRSLCY=266) Ur Buprenorphine Scrn (CUTOFF=10) Ur Oxycodone Screen (ZRV3SS=242) Urine Methadone Screen (ZJHYUN=234) Ur Propoxyphene Screen (UVIWAP=852) Acetaminophen 0 L (10-30) ug/mL Ur Barbiturates Screen (SMWUOP=870) Ur Tricyclics Screen (RPWAAP=218) Ur Phencyclidine Scrn (CUTOFF=25) Ur Amphetamine Screen (VKBKMX=288) U Methamphetamines Scrn (VVHGAW=306) U Benzodiazepines Scrn (SBDVBN=676) U Cocaine Metab Screen (TYORYA=115) U Marijuana (THC) Screen (CUTOFF=50) Ethyl Alcohol 0.00 (0.00) gm% 01/06/20 01/06/20 01/06/20 Range/Units 14:36 14:36 15:00 WBC (3.98-10.04) K/mm3 RBC (3.98-5.22) M/mm3 Hgb (11.2-15.7) gm/dl Hct (34.1-44.9) % MCV (79.4-94.8) fl MCH (25.6-32.2) pg MCHC (32.2-35.5) g/dl RDW Std Deviation (36.4-46.3) fL Plt Count (182-369) K/mm3 MPV (9.4-12.3) fl Neut % (Auto) (34.0-71.1) % Lymph % (Auto) (19.3-51.7) % [place] % (Auto) (4.7-12.5) % Eos % (Auto) (0.7-5.8) Baso % (Auto) (0.1-1.2) % Neut # (Auto) (1.56-6.13) K/mm3 Lymph # (Auto) (1.18-3.74) K/mm3 [place] # (Auto) (0.24-0.36) K/mm3 Eos # (Auto) (0.04-0.36) K/mm3 Baso # (Auto) (0.01-0.08) K/mm3 Manual Slide Review PT 10.3 (9.7-11.7) SECONDS INR 0.96 APTT 23 (22-31) SECONDS Sodium (136-145) mEq/L Potassium (3.5-5.1) mEq/L Chloride (98-107) mEq/L Carbon Dioxide (21-32) mEq/L Anion Gap (5-15) BUN (7-18) mg/dL Creatinine (0.55-1.02) mg/dL Est Cr Clr Drug Dosing mL/min Estimated GFR (MDRD) (>60) mL/min BUN/Creatinine Ratio (14-18) Glucose (74-106) mg/dL Calcium (8.5-10.1) mg/dL Total Bilirubin (0.2-1.0) mg/dL AST (15-37) U/L ALT (14-59) U/L Alkaline Phosphatase (46-116) U/L Creatine Kinase 62 (26-192) U/L Troponin I (0.00-0.056) ng/mL Total Protein (6.4-8.2) g/dl Albumin (3.4-5.0) g/dl Globulin gm/dL Albumin/Globulin Ratio (1-2) Urine Color Yellow (Yellow) Urine Appearance Cloudy H (Clear) Urine pH 6.0 (5.0-8.0) Ur Specific [place] > or = 1.030 (1.005-1.030) Urine Protein 3+ H (Negative) Urine Glucose (UA) Negative (Negative) Urine Ketones Negative (Negative) Urine Occult Blood 1+ H (Negative) Urine Nitrite Negative (Negative) Urine Bilirubin Negative (Negative) Urine Urobilinogen 0.2 (0.2-1.0) Ur Leukocyte Esterase Negative (Negative) Urine RBC 50-75 H (0-5) /hpf Urine WBC 5-10 H (0-5) /hpf Ur Squamous Epith Cells 0-5 (0-5) /hpf Amorphous Sediment Moderate H (NOT SEEN) /hpf Urine Bacteria Few (FEW) /hpf Urine Mucus Not seen (FEW) /hpf Salicylates (2.8-20) mg/dL Urine Opiates Screen (ZDYJWI=859) Ur Buprenorphine Scrn (CUTOFF=10) Ur Oxycodone Screen (QXV3ZA=736) Urine Methadone Screen (GWACOX=644) Ur Propoxyphene Screen (VMRHCH=031) Acetaminophen (10-30) ug/mL Ur Barbiturates Screen (QRFLKA=429) Ur Tricyclics Screen (NIEXXY=942) Ur Phencyclidine Scrn (CUTOFF=25) Ur Amphetamine Screen (CQCKVX=194) U Methamphetamines Scrn (LQMFZJ=416) U Benzodiazepines Scrn (ETIIUY=721) U Cocaine Metab Screen (BSOHFC=878) U Marijuana (THC) Screen (CUTOFF=50) Ethyl Alcohol (0.00) gm% 01/06/20 01/06/20 Range/Units 15:00 16:55 WBC (3.98-10.04) K/mm3 RBC (3.98-5.22) M/mm3 Hgb (11.2-15.7) gm/dl Hct (34.1-44.9) % MCV (79.4-94.8) fl MCH (25.6-32.2) pg MCHC (32.2-35.5) g/dl RDW Std Deviation (36.4-46.3) fL Plt Count (182-369) K/mm3 MPV (9.4-12.3) fl Neut % (Auto) (34.0-71.1) % Lymph % (Auto) (19.3-51.7) % [place] % (Auto) (4.7-12.5) % Eos % (Auto) (0.7-5.8) Baso % (Auto) (0.1-1.2) % Neut # (Auto) (1.56-6.13) K/mm3 Lymph # (Auto) (1.18-3.74) K/mm3 [place] # (Auto) (0.24-0.36) K/mm3 Eos # (Auto) (0.04-0.36) K/mm3 Baso # (Auto) (0.01-0.08) K/mm3 Manual Slide Review PT (9.7-11.7) SECONDS INR APTT (22-31) SECONDS Sodium (136-145) mEq/L Potassium (3.5-5.1) mEq/L Chloride (98-107) mEq/L Carbon Dioxide (21-32) mEq/L Anion Gap (5-15) BUN (7-18) mg/dL Creatinine (0.55-1.02) mg/dL Est Cr Clr Drug Dosing mL/min Estimated GFR (MDRD) (>60) mL/min BUN/Creatinine Ratio (14-18) Glucose (74-106) mg/dL Calcium (8.5-10.1) mg/dL Total Bilirubin (0.2-1.0) mg/dL AST (15-37) U/L ALT (14-59) U/L Alkaline Phosphatase (46-116) U/L Creatine Kinase (26-192) U/L Troponin I 0.313 H* (0.00-0.056) ng/mL Total Protein (6.4-8.2) g/dl Albumin (3.4-5.0) g/dl Globulin gm/dL Albumin/Globulin Ratio (1-2) Urine Color (Yellow) Urine Appearance (Clear) Urine pH (5.0-8.0) Ur Specific [place] (1.005-1.030) Urine Protein (Negative) Urine Glucose (UA) (Negative) Urine Ketones (Negative) Urine Occult Blood (Negative) Urine Nitrite (Negative) Urine Bilirubin (Negative) Urine Urobilinogen (0.2-1.0) Ur Leukocyte Esterase (Negative) Urine RBC (0-5) /hpf Urine WBC (0-5) /hpf Ur Squamous Epith Cells (0-5) /hpf Amorphous Sediment (NOT SEEN) /hpf Urine Bacteria (FEW) /hpf Urine Mucus (FEW) /hpf Salicylates (2.8-20) mg/dL Urine Opiates Screen Presumptive positive H (BPCEKV=344) Ur Buprenorphine Scrn Negative (CUTOFF=10) Ur Oxycodone Screen Negative (MQV1XA=416) Urine Methadone Screen Negative (KHWIKS=279) Ur Propoxyphene Screen Negative (PKAFEF=516) Acetaminophen (10-30) ug/mL Ur Barbiturates Screen Negative (BBJFZK=849) Ur Tricyclics Screen Negative (SSCDUC=208) Ur Phencyclidine Scrn Negative (CUTOFF=25) Ur Amphetamine Screen Presumptive positive H (WCENUA=310) U Methamphetamines Scrn Presumptive positive H (KZTGHX=181) U Benzodiazepines Scrn Negative (NBEUKQ=873) U Cocaine Metab Screen Negative (RUXYOG=875) U Marijuana (THC) Screen Negative (CUTOFF=50) Ethyl Alcohol (0.00) gm% Meds: Medications Generic Name Dose Route Start Last Admin Trade Name Freq PRN Reason Stop Dose Admin Lactated Ringer's 1,000 mls @ 125 mls/hr 01/06/20 14:15 01/06/20 15:15 Ringers, Lactated IV 125 mls/hr ASDIRECTED ALEX Administration Heparin Sodium/Dextrose 25,000 units in 500 mls @ 20 mls/hr 01/06/20 19:00 01/06/20 19:06 Heparin 25,000 Units In D5w 500 Ml IV 1,000 units/hr TITRATE ALEX 20 mls/hr Administration Protocol 1,000 UNITS/HR Discontinued Medications Generic Name Dose Route Start Last Admin Trade Name Freq PRN Reason Stop Dose Admin Heparin Sodium (Porcine) 5,000 units 01/06/20 18:49 01/06/20 19:03 Heparin Sodium IVPUSH 01/06/20 18:50 5,000 units .BOLUS ONE Administration - Re-Assessments/Exams Free Text/Narrative Re-Assessment/Exam: 01/06/20 19:16 Patient's initial troponin was 0.155. This could be a stress demand situation. Second troponin trended upward and doubled over about 2-1/2 hours to 0.313. Given this the patient should be transferred to a facility with cardiology Raoul is full both [facility] and [facility] in [place] has no avai lability. I reached out to [facility] and they were kind enough to accept the patient transfer. Patient's case was discussed with Dr. Guillen, salon shampoo assistant who agrees the patient should come over recommends we start heparin 5000 unit bolus then 1000 an hour given her body weight this is been done pending at this time are urine and serum myoglobins and blood cultures as well is a COVID screen. His white count is quite elevated I imagine this is a stress reaction for the downtime she had and the stresses put on her system urinalysis does not suggest an infectious process she had some mild atelectasis on her chest x-ray but no pneumonia. With her using meth we are wondering about potential IV drug use blood cultures pending Departure - Departure Time of Disposition: 18:15 Disposition: DC/Tfer to Acute Hospital 02 Clinical Impression: Elevated troponin - Discharge Information Referrals: PCP,None [Ordering Only Provider] - Forms: ED Department Discharge Sepsis Event Note (ED) - Evaluation Sepsis Screening Result: Possible Severe Sepsis Risk - Focused Exam Vital Signs: Vital Signs Temp Pulse Resp BP Pulse Ox 01/06/20 12:48 35.6 C L 124 H 12 157/104 H 98 - My Orders Last 24 Hours: My Active Orders 01/06/20 13:56 EKG Documentation Completion [RC] STAT 01/06/20 13:57 Chest 1V Frontal [CR] Stat 01/06/20 13:59 Head wo Cont [CT] Stat 01/06/20 14:15 Lactated Ringers [Ringers, Lactated] 1,000 ml IV ASDIRECTED 01/06/20 14:36 MYOGLOBIN [REF] Stat 01/06/20 16:15 MYOGLOBIN, URINE Stat 01/06/20 18:44 Blood Culture x2 Reflex Set [OM.PC] Stat 01/06/20 19:00 Heparin Sodium/D5W [Heparin 25,000 Units in D5W 500 ML] 25,000 units in 500 ml IV TITRATE 01/06/20 19:05 CULTURE BLOOD [BC] Stat 01/06/20 19:19 CULTURE BLOOD [BC] Stat 01/06/20 19:45 CORONAVIRUS COVID-19 FERCHO [MOLEC] Stat - Assessment/Plan Last 24 Hours: My Active Orders 01/06/20 13:56 EKG Documentation Completion [RC] STAT 01/06/20 13:57 Chest 1V Frontal [CR] Stat 01/06/20 13:59 Head wo Cont [CT] Stat 01/06/20 14:15 Lactated Ringers [Ringers, Lactated] 1,000 ml IV ASDIRECTED 01/06/20 14:36 MYOGLOBIN [REF] Stat 01/06/20 16:15 MYOGLOBIN, URINE Stat 01/06/20 18:44 Blood Culture x2 Reflex Set [OM.PC] Stat 01/06/20 19:00 Heparin Sodium/D5W [Heparin 25,000 Units in D5W 500 ML] 25,000 units in 500 ml IV TITRATE 01/06/20 19:05 CULTURE BLOOD [BC] Stat 01/06/20 19:19 CULTURE BLOOD [BC] Stat 01/06/20 19:45 CORONAVIRUS COVID-19 FERCHO [MOLEC] Stat
[2020-01-06] MEDS ORDERED: Lactated Ringers 1,000 ML IV SCH (14:15)
[2020-01-06] MEDS ORDERED: Heparin Sodium 5,000 Units/ML Vial IVPUSH ONE (18:49)
[2020-01-06] MEDS ORDERED: Heparin Sodium/D5W 25,000 UNITS/500 ML BAG IV SCH (19:00)
--- NOTE | 2020-01-30 12:08 | CR ---
PROCEDURE INFORMATION: Exam: XR Chest, 1 View Exam date and time: 01/06/2020 2:47 PM Age: 54 years old Clinical indication: Other: Syncope TECHNIQUE: Imaging protocol: XR of the chest Views: 1 view. COMPARISON: No relevant prior studies available. FINDINGS: Lungs: Atelectatic changes noted within the lung bases without focal pneumonia. Pleural space: There is no evidence of pneumothorax. There are no pleural effusions present. Heart/Mediastinum: night monitor leads present on the chest wall. The heart demonstrates mild diffuse enlargement. Bones/joints: Postoperative changes of the lower cervical spine.The thoracic spine demonstrates mild degenerative changes at multiple levels. IMPRESSION: Atelectatic changes noted within the lung bases without focal pneumonia. COMMENTS: Examination performed 01/06/2020 and was submitted for final interpretation today. Thank you for allowing us to participate in the care of your patient. Dictated and Authenticated by: Gray Fang DO 01/30/2020 10:47 AM Central Time ([place] & [place]) JACOBO
--- NOTE | 2020-01-30 12:08 | CT ---
PROCEDURE INFORMATION: Exam: CT Head Without Contrast Exam date and time: 01/06/2020 2:05 PM Age: 54 years old Clinical indication: Injury or trauma; Concussion/head injury; Patient HX: Fall hit head confusion TECHNIQUE: Imaging protocol: Computed tomography of the head without contrast. Radiation optimization: All CT scans at this facility use at least one of these dose optimization techniques: automated exposure control; mA and/or kV adjustment per patient size (includes targeted exams where dose is matched to clinical indication); or iterative reconstruction. COMPARISON: No relevant prior studies available. FINDINGS: Brain: Normal. No hemorrhage. Unremarkable white matter. No mass effect. Cerebral ventricles: No ventriculomegaly. Bones/joints: No acute fracture. Paranasal sinuses: Visualized sinuses are unremarkable. No fluid levels. Mastoid air cells: Visualized mastoid air cells are well aerated. Soft tissues: No acute changes IMPRESSION: No acute intracranial abnormality. COMMENTS: Examination performed 01/06/2020 and was submitted for final interpretation today. Thank you for allowing us to participate in the care of your patient. Dictated and Authenticated by: Gray Fang DO 01/30/2020 10:46 AM Central Time ([place] & [place]) [facility]
== END 2020-01-06 21:00 ==
LOC: JD.ED 12:44
DX: R79.89 Other specified abnormal findings of blood chemistry (principal); K21.9 Gastro-esophageal reflux disease without esophagitis; F31.9 Bipolar disorder, unspecified; F41.9 Anxiety disorder, unspecified; I10 Essential (primary) hypertension; E66.9 Obesity, unspecified; F17.210 Nicotine dependence, cigarettes, uncomplicated; Z68.39 Body mass index [BMI] 39.0-39.9, adult; Z20.828 Contact with and (suspected) exposure to other viral communicable diseases; Z88.0 Allergy status to penicillin
CPT/HCPCS: 36415; 70450; 71045; 80053; 80306; 80307; 81001; 82550; 83874; 84484; 85025; 85610; 85730; 87040; 87635; 93005; 96365; 99285; J1644; J7120; 93010; U0002

== ENCOUNTER 2022-09-30 10:29 | Emergency (ER) | payer MEDICAID ==
[2022-09-30] MEDS ORDERED: Ondansetron 4 MG/2 ML SDV IVPUSH ONE (10:44)
[2022-09-30] MEDS ORDERED: LORazepam 2 MG/ML SDV IVPUSH ONE ×3 (10:58→19:36)
[2022-09-30] MEDS ORDERED: Sodium Chloride 0.9% 1,000 ML IV STA ×2 (10:58→15:31)
[2022-09-30] MEDS: Sodium Chloride 0.9% 10 ML Syringe FLUSH PRN ×2 (11:27→15:45)
[2022-09-30 11:44] LABS: BASOPHILS ABSOLUTE AUTO 0.07 K/mm3 (0.01-0.08); BASOPHILS PERCENT AUTO 0.4 % (0.1-1.2); EOSINOPHILS ABSOLUTE AUTO 0.24 K/mm3 (0.04-0.36); EOSINOPHILS PERCENT AUTO 1.4 (0.7-5.8); HEMATOCRIT 44.6 % (34.1-44.9); HEMOGLOBIN 14.4 gm/dl (11.2-15.7); IMMATURE GRAN ABSOLUTE AUTO 0.05 K/mm3 (0.00-0.10); IMMATURE GRAN PERCENT AUTO 0.3 % (<=1.0); LYMPHOCYTES ABSOLUTE AUTO 3.19 K/mm3 (1.18-3.74); LYMPHOCYTES PERCENT AUTO 19.3 % (19.3-51.7); MEAN CORPUSCULAR HGB CONC 32.3 g/dl (32.2-35.5); MEAN PLATELET VOLUME 8.8 fl (9.4-12.3); MONOCYTES ABSOLUTE AUTO 1.24 K/mm3 (0.24-0.36); MONOCYTES PERCENT AUTO 7.5 % (4.7-12.5); NEUTROPHILS ABSOLUTE AUTO 11.78 K/mm3 (1.56-6.13); NEUTROPHILS PERCENT AUTO 71.1 % (34.0-71.1); PLATELET COUNT,PLT 403 K/mm3 (182-369); RED BLOOD CELL COUNT 4.97 M/mm3 (3.98-5.22); WHITE BLOOD CELL COUNT,WBC 16.57 K/mm3 (3.98-10.04)
[2022-09-30 11:47] LABS: MEAN CORPUSCULAR VOLUME 89.7 fl (79.4-94.8)
[2022-09-30] MEDS ORDERED: diphenhydrAMINE 50 MG/ML SDV IVPUSH ONE (11:49)
[2022-09-30 12:05] LABS: A/G RATIO 0.5 (1-2); ALBUMIN 3.1 g/dl (3.4-5.0); ANION GAP 15.1 (5-15); BILIRUBIN TOTAL 0.4 mg/dL (0.2-1.0); BUN/CREATININE RATIO 12.7 (14-18); C-REACTIVE PROTEIN 1.4 mg/dL (<1.0); CALCIUM 9.3 mg/dL (8.5-10.1); CREATININE 1.1 mg/dL (0.55-1.02); EST CRCL DRUG DOSING (CG) 59.68 mL/min; MAGNESIUM 1.6 mg/dL (1.8-2.4); POTASSIUM,K 3.1 mEq/L (3.5-5.1); PROTEIN TOTAL,TP 9.2 g/dl (6.4-8.2)
[2022-09-30 12:46] LABS: APPEARANCE,URINE CLEAR (Clear); BILIRUBIN,URINE NEGATIVE (Negative); COLOR,URINE YELLOW (Yellow); GLUCOSE,URINE NEGATIVE (Negative); KETONES,URINE NEGATIVE (Negative); LEUKOCYTE ESTERASE,URINE NEGATIVE (Negative); NITRITE,URINE NEGATIVE (Negative); OCCULT BLOOD,URINE NEGATIVE (Negative); PH,URINE 6.5 (5.0-8.0); PROTEIN,URINE NEGATIVE (Negative); UROBILINOGEN,URINE 0.2 (0.2-1.0)
[2022-09-30 12:54] LABS: BARBITURATE SCREEN,URINE NEGATIVE (CUTOFF=200); BENZODIAZEPINES SCREEN,URINE PRESUMPTIVE POSITIVE (CUTOFF=150); BUPRENORPHINE SCREEN,URINE NEGATIVE (CUTOFF=10); METHADONE SCREEN, URINE NEGATIVE (CUTOFF=200); METHAMPHETAMINES SCREEN, URINE NEGATIVE (CUTOFF=500); OXYCODONE SCREEN,URINE PRESUMPTIVE POSITIVE (CUT0FF=100); PROPOXYPHENE SCREEN,URINE NEGATIVE (CUTOFF=300); THC SCREEN,URINE 20 NG/ML NEGATIVE (CUTOFF=50)
[2022-09-30] MEDS ORDERED: Haloperidol Lactate 5 MG/ML SDV IVPUSH ONE (12:55)
[2022-09-30 12:56] LABS: AMPHETAMINES SCREEN, URINE NEGATIVE (CUTOFF=500)
[2022-09-30 13:08] LABS: BACTERIA,URINE FEW /hpf (FEW); EPITHELIAL CELLS,URINE 0-5 /hpf (0-5); MUCUS,URINE MODERATE /hpf (FEW); RBC,URINE 0-5 /hpf (0-5); WBC,URINE 0-5 /hpf (0-5)
[2022-09-30] MEDS ORDERED: Acetaminophen 325 MG/10.15 ML ML PO ONE (14:10)
[2022-09-30] MEDS ORDERED: Acetaminophen 325 MG Tab PO ONE (14:40)
[2022-09-30] MEDS ORDERED: Iopamidol 612 MG/ML 100 ML Bottle IVPUSH ONE (14:59)
[2022-09-30 15:30] LABS: LACTIC ACID 2.2 mmol/L (0.4-2.0)
[2022-09-30 16:35] LABS: CORONAVIRUS COVID-19 NAA NEGATIVE (NEGATIVE); INFLUENZA A NAA NEGATIVE (NEGATIVE); RESPIRATORY SYNCYTIAL VIR NAA NEGATIVE (NEGATIVE)
[2022-09-30] MEDS ORDERED: cefTRIAXone 2 GM in Sodium Chloride 0.9% 100 ML IV ONE (16:39)
== END 2022-09-30 21:16 ==
LOC: JD.ED 10:29
DX: F11.23 Opioid dependence with withdrawal (principal); I10 Essential (primary) hypertension; K21.9 Gastro-esophageal reflux disease without esophagitis; E66.9 Obesity, unspecified; Z3A.30 30 weeks gestation of pregnancy; Z20.822 Contact with and (suspected) exposure to COVID-19; Z88.0 Allergy status to penicillin
CPT/HCPCS: 0241U; 36415; 71260; 74177; 80053; 80306; 81001; 83605; 83735; 85025; 86140; 87040; 96361; 96365; 96375; 96376; 99285; A9270; J0696; J1200; J1630; J2060; J2405; J3490; J7030; Q9967

== ENCOUNTER 2022-12-17 17:40 | Inpatient (IN) | payer MEDICAID ==
[2022-12-17] MEDS ORDERED: Sodium Chloride 0.9% 1,000 ML IV SCH (18:30)
[2022-12-17 18:44] LABS: BASOPHILS ABSOLUTE AUTO 0.1 K/mm3 (0.0-0.2); BASOPHILS PERCENT AUTO 0.5 % (0.0-1.0); EOSINOPHILS ABSOLUTE AUTO 0.3 K/mm3 (0.0-0.4); EOSINOPHILS PERCENT AUTO 1.6 % (0.0-6.0); HEMATOCRIT 18.9 % (37.0-47.0); IMMATURE GRAN ABSOLUTE AUTO 0.29 K/mm3 (0.00-0.05); IMMATURE GRAN PERCENT AUTO 1.5 % (0.0-0.4); LYMPHOCYTES PERCENT AUTO 20.5 % (24.0-44.0); MEAN CORPUSCULAR HEMOGLOBIN 29.4 pg (28.0-32.0); MEAN CORPUSCULAR HGB CONC 30.7 g/dl (32.0-36.0); MEAN CORPUSCULAR VOLUME 95.9 fl (83.0-99.0); MEAN PLATELET VOLUME 9.2 fl (9.4-12.3); MONOCYTES ABSOLUTE AUTO 1.2 K/mm3 (0.0-0.8); NEUTROPHILS ABSOLUTE AUTO 13.8 K/mm3 (1.8-7.7); NEUTROPHILS PERCENT AUTO 69.9 % (41.0-71.0); NRBC ABSOLUTE 0.04 (0.00-0.02); NRBC PERCENT 0.2 % (0.0-0.2); PLATELET COUNT,PLT 344 K/mm3 (150-400); RED BLOOD CELL COUNT 1.97 M/mm3 (4.10-5.30); WHITE BLOOD CELL COUNT,WBC 19.73 K/mm3 (3.9-11.3)
[2022-12-17] MEDS: Sodium Chloride 0.9% 10 ML Syringe FLUSH PRN ×2 (18:45→19:55)
[2022-12-17 18:47] LABS: HEMOGLOBIN 5.8 gm/dl (12.0-16.0)
[2022-12-17] MEDS ORDERED: Pantoprazole 40 MG Vial IVPUSH ONE ×2 (18:54→20:08)
[2022-12-17 19:12] LABS: A/G RATIO 0.6 (1-2); ALBUMIN 2.6 g/dl (3.4-5.0); ANION GAP 9.1 (5-15); BILIRUBIN TOTAL 0.2 mg/dL (0.2-1.0); BUN/CREATININE RATIO 36.7 (14-18); CALCIUM 8.7 mg/dL (8.5-10.1); CREATININE 1.2 mg/dL (0.55-1.02); EST CRCL DRUG DOSING (CG) 47.1 mL/min; POTASSIUM,K 4.1 mEq/L (3.5-5.1); PROTEIN TOTAL,TP 7.1 g/dl (6.4-8.2)
[2022-12-17 19:27] LABS: SLIDE REVIEW ABNORMAL SMEAR
[2022-12-17] MEDS ORDERED: Iopamidol 755 Mg/ML 100 ML Bottle IVPUSH ONE (19:53)
[2022-12-17] MEDS ORDERED: Iopamidol 612 MG/ML 100 ML Bottle IVPUSH ONE (19:53)
[2022-12-17] MEDS ORDERED: Sodium Chloride 0.9% 10 ML SDV FLUSH ONE (19:53)
[2022-12-17] MEDS ORDERED: Sodium Chloride 0.9% 250 ML IV SCH (20:15)
[2022-12-17] MEDS ORDERED: Ondansetron 4 MG Tab.DIS PO PRN (21:12)
[2022-12-17] MEDS ORDERED: Ondansetron 4 MG/2 ML SDV IV PRN (21:12)
[2022-12-17] MEDS ORDERED: Lactated Ringers 1,000 ML IV SCH (21:15)
[2022-12-17] MEDS: Pantoprazole 80 MG in Sodium Chloride 0.9% 100 ML IV SCH (23:28)
[2022-12-18 05:58] LABS: BASOPHILS ABSOLUTE AUTO 0.1 K/mm3 (0.0-0.2); BASOPHILS PERCENT AUTO 0.6 % (0.0-1.0); EOSINOPHILS ABSOLUTE AUTO 0.5 K/mm3 (0.0-0.4); EOSINOPHILS PERCENT AUTO 2.6 % (0.0-6.0); HEMATOCRIT 26.1 % (37.0-47.0); IMMATURE GRAN ABSOLUTE AUTO 0.27 K/mm3 (0.00-0.05); IMMATURE GRAN PERCENT AUTO 1.5 % (0.0-0.4); LYMPHOCYTES ABSOLUTE AUTO 4.3 K/mm3 (1.0-4.8); LYMPHOCYTES PERCENT AUTO 23.4 % (24.0-44.0); MEAN CORPUSCULAR HEMOGLOBIN 30.4 pg (28.0-32.0); MEAN CORPUSCULAR HGB CONC 33.3 g/dl (32.0-36.0); MEAN PLATELET VOLUME 9.9 fl (9.4-12.3); MONOCYTES ABSOLUTE AUTO 1.5 K/mm3 (0.0-0.8); NEUTROPHILS ABSOLUTE AUTO 11.8 K/mm3 (1.8-7.7); NEUTROPHILS PERCENT AUTO 63.9 % (41.0-71.0); NRBC ABSOLUTE 0.04 (0.00-0.02); NRBC PERCENT 0.2 % (0.0-0.2); RED BLOOD CELL COUNT 2.86 M/mm3 (4.10-5.30); WHITE BLOOD CELL COUNT,WBC 18.47 K/mm3 (3.9-11.3)
[2022-12-18 06:01] LABS: HEMOGLOBIN 8.7 gm/dl (12.0-16.0); MEAN CORPUSCULAR VOLUME 91.3 fl (83.0-99.0); PLATELET COUNT,PLT 229 K/mm3 (150-400)
[2022-12-18] MEDS: Pantoprazole 80 MG in Sodium Chloride 0.9% 100 ML IV SCH ×2 (08:00→17:27)
[2022-12-18] MEDS ORDERED: Nystatin Topical Powder 15 GM Bottle TOP PRN (11:06)
[2022-12-18] MEDS ORDERED: Lidocaine 1% 4 ML ONE (12:45)
[2022-12-18] MEDS ORDERED: Propofol 200 MG/20 ML SDV ONE (12:45)
[2022-12-18] MEDS: Sucralfate 1 GM Tab PO SCH ×2 (15:35→19:58)
[2022-12-18] MEDS: Dextrose 5%-0.45% NaCl 1,000 ML IV SCH (16:29)
[2022-12-18] MEDS: amLODIPine 5 MG Tab PO SCH (18:41)
[2022-12-18] MEDS: busPIRone 15 MG Tab PO SCH (18:41)
[2022-12-19] MEDS: Sucralfate 1 GM Tab PO SCH ×2 (02:16→08:08)
[2022-12-19] MEDS: Pantoprazole 80 MG in Sodium Chloride 0.9% 100 ML IV SCH (04:32)
[2022-12-19] MEDS: busPIRone 15 MG Tab PO SCH (08:04)
[2022-12-19] MEDS: amLODIPine 5 MG Tab PO SCH (08:07)
[2022-12-19 08:41] LABS: BASOPHILS ABSOLUTE AUTO 0.1 K/mm3 (0.0-0.2); BASOPHILS PERCENT AUTO 0.6 % (0.0-1.0); EOSINOPHILS ABSOLUTE AUTO 0.4 K/mm3 (0.0-0.4); HEMATOCRIT 28.7 % (37.0-47.0); HEMOGLOBIN 9.3 gm/dl (12.0-16.0); IMMATURE GRAN ABSOLUTE AUTO 0.13 K/mm3 (0.00-0.05); IMMATURE GRAN PERCENT AUTO 0.9 % (0.0-0.4); LYMPHOCYTES ABSOLUTE AUTO 3.3 K/mm3 (1.0-4.8); LYMPHOCYTES PERCENT AUTO 22.5 % (24.0-44.0); MEAN CORPUSCULAR HGB CONC 32.4 g/dl (32.0-36.0); MEAN CORPUSCULAR VOLUME 92.6 fl (83.0-99.0); MONOCYTES ABSOLUTE AUTO 0.9 K/mm3 (0.0-0.8); NEUTROPHILS ABSOLUTE AUTO 9.9 K/mm3 (1.8-7.7); PLATELET COUNT,PLT 338 K/mm3 (150-400); WHITE BLOOD CELL COUNT,WBC 14.74 K/mm3 (3.9-11.3)
[2022-12-19] MEDS ORDERED: Hydrochlorothiazide 25 MG Tab PO SCH (09:00)
[2022-12-19] MEDS ORDERED: Losartan 100 MG Tab PO SCH (09:00)
[2022-12-19 09:06] LABS: ANION GAP 10.7 (5-15); BUN/CREATININE RATIO 13.3 (14-18); CALCIUM 8.4 mg/dL (8.5-10.1); CREATININE 0.9 mg/dL (0.55-1.02); EST CRCL DRUG DOSING (CG) 62.8 mL/min; POTASSIUM,K 3.7 mEq/L (3.5-5.1)
[2022-12-19] MEDS: Dextrose 5%-0.45% NaCl 1,000 ML IV SCH (10:29)
[2022-12-19] MEDS ORDERED: busPIRone 15 MG Tab PO SCH (21:00)
== END 2022-12-19 12:30 | disposition home or self-care (01) | DRG 811 ==
LOC: JD.ED 17:40 → JD.MS 21:12
PROVIDERS: ADMIT Hospitalist; ATTEND Hospitalist
PROC: 30233N1 Transfusion of Nonautologous Red Blood Cells into Peripheral Vein, Percutaneous Approach (ICD-10-PCS; principal; 2022-12-17)
PROC: 30233N1 Transfusion of Nonautologous Red Blood Cells into Peripheral Vein, Percutaneous Approach (ICD-10-PCS; 2022-12-18)
PROC: 0DB78ZX Excision of Stomach, Pylorus, Via Natural or Artificial Opening Endoscopic, Diagnostic (ICD-10-PCS; 2022-12-18)
DX: D62 Acute posthemorrhagic anemia (principal); K26.4 Chronic or unspecified duodenal ulcer with hemorrhage; F11.10 Opioid abuse, uncomplicated; K92.2 Gastrointestinal hemorrhage, unspecified; I10 Essential (primary) hypertension; M19.90 Unspecified osteoarthritis, unspecified site; G89.29 Other chronic pain; M54.9 Dorsalgia, unspecified; F41.9 Anxiety disorder, unspecified; K21.9 Gastro-esophageal reflux disease without esophagitis; F43.10 Post-traumatic stress disorder, unspecified; E66.9 Obesity, unspecified; Z90.721 Acquired absence of ovaries, unilateral; Z98.890 Other specified postprocedural states; Z88.0 Allergy status to penicillin; F31.9 Bipolar disorder, unspecified; F11.21 Opioid dependence, in remission; Z56.0 Unemployment, unspecified; Z79.899 Other long term (current) drug therapy; Z86.16 Personal history of COVID-19; Z87.891 Personal history of nicotine dependence
CPT/HCPCS: 36415; 36430; 71045; 71045-26; 74177; 74177-26; 80048; 80053; 80307; 82947; 83690; 83735; 83880; 84484; 85025; 86850; 86900; 86901; 86922; 93005; 93010; 99285; A9270-GY; C9113; J2704; J3490; J7030; J7042; J7120; P9016; Q9967

== ENCOUNTER 2022-12-30 13:22 | Inpatient (IN) | payer MEDICAID ==
[2022-12-30] MEDS ORDERED: Alum Hydrox/Mag Hydrox/Simeth 30 ML, Lidocaine 2% 15 ML PO ONE ×2 (14:16)
[2022-12-30 14:33] LABS: BASOPHILS ABSOLUTE AUTO 0.1 K/mm3 (0.0-0.2); BASOPHILS PERCENT AUTO 0.7 % (0.0-1.0); EOSINOPHILS ABSOLUTE AUTO 0.2 K/mm3 (0.0-0.4); IMMATURE GRAN ABSOLUTE AUTO 0.04 K/mm3 (0.00-0.05); IMMATURE GRAN PERCENT AUTO 0.3 % (0.0-0.4); LYMPHOCYTES ABSOLUTE AUTO 2.3 K/mm3 (1.0-4.8); MEAN CORPUSCULAR HEMOGLOBIN 28.6 pg (28.0-32.0); MEAN CORPUSCULAR HGB CONC 31.6 g/dl (32.0-36.0); MEAN CORPUSCULAR VOLUME 90.5 fl (83.0-99.0); MEAN PLATELET VOLUME 8.5 fl (9.4-12.3); MONOCYTES PERCENT AUTO 8.5 % (0.0-8.0); NEUTROPHILS ABSOLUTE AUTO 8.3 K/mm3 (1.8-7.7); NEUTROPHILS PERCENT AUTO 69.5 % (41.0-71.0); RED BLOOD CELL COUNT 4.09 M/mm3 (4.10-5.30); WHITE BLOOD CELL COUNT,WBC 11.99 K/mm3 (3.9-11.3)
[2022-12-30 14:42] LABS: HEMOGLOBIN 11.7 gm/dl (12.0-16.0); PLATELET COUNT,PLT 465 K/mm3 (150-400)
[2022-12-30 14:55] LABS: A/G RATIO 0.6 (1-2); ALBUMIN 3.3 g/dl (3.4-5.0); ANION GAP 12.5 (5-15); BILIRUBIN TOTAL 0.4 mg/dL (0.2-1.0); BUN/CREATININE RATIO 18.1 (14-18); C-REACTIVE PROTEIN 0.9 mg/dL (<1.0); CALCIUM 9.3 mg/dL (8.5-10.1); CREATININE 1.6 mg/dL (0.55-1.02); EST CRCL DRUG DOSING (CG) 35.33 mL/min; POTASSIUM,K 3.5 mEq/L (3.5-5.1); PROTEIN TOTAL,TP 9.1 g/dl (6.4-8.2)
[2022-12-30] MEDS ORDERED: Sodium Chloride 0.9% 1,000 ML IV SCH (15:15)
[2022-12-30] MEDS ORDERED: Metoclopramide 10 MG/2 ML SDV IVPUSH PRN (16:14)
[2022-12-30] MEDS ORDERED: Iopamidol 612 MG/ML 100 ML Bottle IVPUSH ONE (16:28)
[2022-12-30] MEDS ORDERED: HYDROmorphone 0.5 MG/0.5 ML Syringe IVPUSH PRN (18:13)
[2022-12-30] MEDS ORDERED: Ondansetron 4 MG/2 ML SDV IV PRN (18:13)
[2022-12-30] MEDS: Sodium Chloride 0.9% 1,000 ML IV SCH (18:39)
[2022-12-30] MEDS ORDERED: Pantoprazole 40 MG Vial IVPUSH SCH (21:00)
[2022-12-31] MEDS: Sodium Chloride 0.9% 1,000 ML IV SCH ×2 (05:35→17:16)
[2022-12-31 05:49] LABS: BASOPHILS ABSOLUTE AUTO 0.1 K/mm3 (0.0-0.2); BASOPHILS PERCENT AUTO 0.9 % (0.0-1.0); EOSINOPHILS ABSOLUTE AUTO 0.3 K/mm3 (0.0-0.4); EOSINOPHILS PERCENT AUTO 3.7 % (0.0-6.0); HEMATOCRIT 31.5 % (37.0-47.0); IMMATURE GRAN ABSOLUTE AUTO 0.02 K/mm3 (0.00-0.05); IMMATURE GRAN PERCENT AUTO 0.3 % (0.0-0.4); LYMPHOCYTES ABSOLUTE AUTO 2.6 K/mm3 (1.0-4.8); LYMPHOCYTES PERCENT AUTO 33.4 % (24.0-44.0); MEAN CORPUSCULAR HEMOGLOBIN 28.6 pg (28.0-32.0); MEAN CORPUSCULAR HGB CONC 31.4 g/dl (32.0-36.0); MEAN PLATELET VOLUME 8.9 fl (9.4-12.3); MONOCYTES ABSOLUTE AUTO 0.7 K/mm3 (0.0-0.8); MONOCYTES PERCENT AUTO 9.5 % (0.0-8.0); NEUTROPHILS ABSOLUTE AUTO 4.1 K/mm3 (1.8-7.7); NEUTROPHILS PERCENT AUTO 52.2 % (41.0-71.0); RED BLOOD CELL COUNT 3.46 M/mm3 (4.10-5.30); WHITE BLOOD CELL COUNT,WBC 7.82 K/mm3 (3.9-11.3)
[2022-12-31 06:01] LABS: A/G RATIO 0.6 (1-2); ALBUMIN 2.7 g/dl (3.4-5.0); ANION GAP 11.7 (5-15); BILIRUBIN TOTAL 0.4 mg/dL (0.2-1.0); BUN/CREATININE RATIO 20.9 (14-18); CREATININE 1.1 mg/dL (0.55-1.02); EST CRCL DRUG DOSING (CG) 51.39 mL/min; POTASSIUM,K 3.7 mEq/L (3.5-5.1); PROTEIN TOTAL,TP 7.4 g/dl (6.4-8.2)
[2022-12-31 06:03] LABS: INR 1.02; PROTHROMBIN TIME 10.9 SECONDS (9.7-12.0)
[2022-12-31 06:12] LABS: HEMOGLOBIN 9.9 gm/dl (12.0-16.0); PLATELET COUNT,PLT 365 K/mm3 (150-400)
[2022-12-31 06:26] LABS: CALCIUM 8.4 mg/dL (8.5-10.1)
[2022-12-31] MEDS ORDERED: Propofol 200 MG/20 ML SDV ONE ×2 (08:17→08:40)
[2022-12-31] MEDS ORDERED: Midazolam 1 MG/ML 2 ML SDV ONE (08:19)
[2022-12-31] MEDS: Sucralfate Suspension 1 GM/10 ML Cup PO SCH ×3 (09:46→21:13)
[2022-12-31] MEDS: busPIRone 15 MG Tab PO SCH ×2 (11:24→21:13)
[2022-12-31] MEDS: Pantoprazole 40 MG Vial IVPUSH SCH ×2 (11:24→22:00)
[2022-12-31] MEDS: Metoclopramide 5 MG Tab PO SCH (16:23)
[2022-12-31] MEDS ORDERED: Non-Formulary Medication 1 Each (Lurasidone Hcl [Latuda] 60 MG Tablet) PO SCH (21:00)
[2023-01-01] MEDS: Pantoprazole 40 MG Vial IVPUSH SCH ×2 (00:36→11:54)
[2023-01-01] MEDS: Sodium Chloride 0.9% 1,000 ML IV SCH ×2 (04:01→14:42)
[2023-01-01] MEDS: Sucralfate Suspension 1 GM/10 ML Cup PO SCH ×3 (04:01→15:30)
[2023-01-01 05:36] LABS: HEMATOCRIT 31.3 % (37.0-47.0); HEMOGLOBIN 9.8 gm/dl (12.0-16.0); MEAN CORPUSCULAR HEMOGLOBIN 28.7 pg (28.0-32.0); MEAN CORPUSCULAR HGB CONC 31.3 g/dl (32.0-36.0); MEAN CORPUSCULAR VOLUME 91.5 fl (83.0-99.0); MEAN PLATELET VOLUME 8.7 fl (9.4-12.3); PLATELET COUNT,PLT 345 K/mm3 (150-400); RED BLOOD CELL COUNT 3.42 M/mm3 (4.10-5.30); WHITE BLOOD CELL COUNT,WBC 6.91 K/mm3 (3.9-11.3)
[2023-01-01 05:39] LABS: ANION GAP 9.1 (5-15); BUN/CREATININE RATIO 12.2 (14-18); CALCIUM 8.3 mg/dL (8.5-10.1); CREATININE 0.9 mg/dL (0.55-1.02); EST CRCL DRUG DOSING (CG) 62.8 mL/min; POTASSIUM,K 4.1 mEq/L (3.5-5.1)
[2023-01-01] MEDS: Metoclopramide 5 MG Tab PO SCH ×2 (07:32→11:54)
[2023-01-01] MEDS: busPIRone 15 MG Tab PO SCH (09:28)
== END 2023-01-01 17:50 | disposition home or self-care (01) | DRG 381 ==
LOC: JD.ED 13:22 → JD.MS 17:06
PROVIDERS: ADMIT Hospitalist; ATTEND Hospitalist
PROC: 0DJ08ZZ Inspection of Upper Intestinal Tract, Via Natural or Artificial Opening Endoscopic (ICD-10-PCS; principal; 2022-12-31)
PROC: 30233N1 Transfusion of Nonautologous Red Blood Cells into Peripheral Vein, Percutaneous Approach (ICD-10-PCS; 2022-12-31)
DX: K31.1 Adult hypertrophic pyloric stenosis (principal); N17.9 Acute kidney failure, unspecified; Z68.41 Body mass index [BMI] 40.0-44.9, adult; K26.9 Duodenal ulcer, unspecified as acute or chronic, without hemorrhage or perforation; K31.84 Gastroparesis; D64.9 Anemia, unspecified; R10.11 Right upper quadrant pain; R11.2 Nausea with vomiting, unspecified; E66.01 Morbid (severe) obesity due to excess calories; K59.09 Other constipation; F41.9 Anxiety disorder, unspecified; F31.9 Bipolar disorder, unspecified; F43.10 Post-traumatic stress disorder, unspecified; E83.42 Hypomagnesemia; M19.90 Unspecified osteoarthritis, unspecified site; I10 Essential (primary) hypertension; Z90.721 Acquired absence of ovaries, unilateral; Z98.890 Other specified postprocedural states; Z87.891 Personal history of nicotine dependence; Z88.0 Allergy status to penicillin; K21.9 Gastro-esophageal reflux disease without esophagitis; E66.9 Obesity, unspecified; Z79.899 Other long term (current) drug therapy; Z86.16 Personal history of COVID-19
CPT/HCPCS: 36415; 74019; 74177; 76705; 80053; 83605; 85025; 86140; 96360; 99285; A9270 ×2; J7030; Q9967; 80048; 82947; 85027; 85610; 93005; C9113; J2250; J2704